=== PATIENT | male | born 1945 ===

== ENCOUNTER 2018-06-18 12:32 | Day surgery (SDC) | payer MEDICAID, MEDICARE, OTHER ==
[2018-06-15 20:15] VITALS: BMI 21.2
[2018-06-18] MEDS ORDERED: Lidocaine PF 2% (5 ml) Inj (For Cardiac Arrhy) ONE (16:46)
[2018-06-18] MEDS ORDERED: Iodixanol 320 MG/ML 200 ML BOTTLE IV ONE (17:01)
[2018-06-18] MEDS ORDERED: Midazolam 2 MG/2 ML VIAL ONE (17:38)
--- NOTE | 2018-06-19 04:27 | CARDCATH ---
PROCEDURE DATE: 06/18/2018 INDICATION: Amol Hyatt is a 73-year-old male who presented to [facility] with complaints of atypical chest pain. The patient has history of diabetes mellitus and hypertension, and therefore, underwent a nuclear stress test which showed ischemia with anterior septal defect. He was therefore brought to the orthodontic laboratory technician for further evaluation and treatment. PROCEDURE PERFORMED: Left heart catheterization with selective left and right coronary angiogram via right femoral arterial approach, 6-[place] right femoral arterial access, Mynx closure device for hemostasis. ANGIOGRAPHIC FINDINGS: Left main is a large sized vessel which bifurcates into LAD and circ. LAD is a large sized vessel, has a mid 65% stenosis, gives off two small size diagonal branches, left circumflex runs in the AV groove, has a mid 40% stenosis, gives off a large obtuse marginal branch, free of any obstructive disease. Left circumflex has a mid 55% stenosis. The RCA large sized vessel has a mid 55% stenosis. Codominant circulation. IMPRESSION: Two vessel moderate coronary artery disease involving the left anterior descending and left right coronary artery. Normal left ventricular ejection fraction. RECOMMENDATIONS: The patient is to be maximized on medical therapy. Consider PCI of RCA and LAD. FFR guidance if clinically indicated, depending on clinical symptoms after maximum medical therapy. Jeffery Jacobo MD
== END 2018-06-18 19:25 | disposition short-term general hospital (02) ==
LOC: C.CATHLAB 12:32
PROVIDERS: ATTEND Internal Medicine Interventional Cardiology
DX: I25.10 Atherosclerotic heart disease of native coronary artery without angina pectoris (principal); E11.9 Type 2 diabetes mellitus without complications; I10 Essential (primary) hypertension; Q21.9 Congenital malformation of cardiac septum, unspecified; R07.9 Chest pain, unspecified
CPT/HCPCS: 82948; 93458; C1760; C1769; C1887; C1893; J1644; J2250; J3010; Q9966